=== PATIENT | male | born 1975 | race Caucasian/White ===

== ENCOUNTER 2017-05-29 03:20 | Emergency (ER) | payer SELFPAY ==
[2017-05-29 03:54] VITALS: BP 140/90; PULSE 80; TEMP 97.9; BMI 28.1
[2017-05-29] MEDS ORDERED: FLUORESCEIN NA 1 EA STRIP ONE (04:02)
[2017-05-29] MEDS ORDERED: POLYMYXIN B SULFATE/TMP 10 ML OPHTHALMIC SOLUTION OD ONE (04:14)
--- NOTE | 2017-05-29 04:14 | PDOC ---
History of Present Illness - General Chief Complaint: Eye Problem Stated Complaint: EYE PROBLEM Time Seen by Provider: 05/29/17 03:55 History Source: Patient Exam Limitations: No Limitations - History of Present Illness Initial Comments: 05/29/17 04:09 42yo Male patient with no significant past medical history presents to ED c/o bilateral eye pain with left upper eyelid swelling. Patient denies vision changes, contact lens use. 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 He denies any other complaints at this time. Past History - Travel Traveled outside of the country in the last 30 days: No Close contact w/someone who was outside of country & ill: No - Past Medical History Allergies/Adverse Reactions: Allergies Allergy/AdvReac Type Severity Reaction Status Date / Time No Known Allergies Allergy Verified 05/29/17 03:53 Home Medications: Ambulatory Orders NK [No Known Home Medication] 05/29/17 - Immunization History Immunization Up to Date: Yes - Psycho/Social/Smoking Cessation Hx Suicidal Ideation: No Smoking History: Never smoked Review of Systems - Review of Systems Able to Perform ROS?: Yes Is the patient limited Hungarian proficient: No Constitutional: No: Chills, Fever HEENTM: Yes: Eye Pain, Tearing. No: Blurred Vision, Recent change in vision, Double Vision, Cataracts, Ear Pain All Other Systems: Reviewed and Negative *Physical Exam - Vital Signs Last Vital Signs Temp Pulse Resp BP Pulse Ox 97.9 F 80 18 140/90 97 05/29/17 03:20 05/29/17 03:20 05/29/17 03:20 05/29/17 03:20 05/29/17 03:20 - Physical Exam General Appearance: Yes: Nourished, Appropriately Dressed. No: Apparent Distress, Mild Distress, Moderate Distress, Severe Distress HEENT: positive: EOMI, GOKUL, Normal ENT Inspection, Normal Voice, Symmetrical, TMs Normal, Pharynx Normal. negative: Tonsillar Exudate, Tonsillar Erythema, Nasal Congestion, Rhinorrhea, Sinus Tenderness, TM Bulging, TM Dull, TM Erythema Neck: positive: Trachea midline, Normal Thyroid, Supple. negative: Stridor, Lymphadenopathy (R), Lymphadenopathy (L), Tender lateral, Tender midline Respiratory/Chest: positive: Lungs Clear, Normal Breath Sounds. negative: Chest Tender, Respiratory Distress, Accessory Muscle Use, Labored Respiration, Rapid RR, Crackles, Rales, Rhonchi, Stridor, Wheezing Cardiovascular: positive: Regular Rhythm, Regular Rate Integumentary: positive: Normal Color, Dry, Warm. negative: Erythema, Swelling , Bruising Neurologic: positive: prepress specialist II-XII NML intact, Fully Oriented, Alert, Normal Mood/ Affect, Normal Response, Motor Strength 5/5 Procedures - Eye Procedure Alcaine Drops Administered: Yes Eye Irrigated w/ Saline(Bipin Lens): No Antibiotic Oinment/Drps Admin: both eyes Progress: 05/29/17 04:26 Eye exam (Medina lamp) revealed corneal abrasion to right eye w/ bilateral conjunctivitis. *DC/Admit/Observation/Transfer Diagnosis at time of Disposition: Eye pain Qualifiers: Laterality: bilateral Qualified Code(s): H57.13 - Ocular pain, bilateral Corneal abrasion, right Qualifiers: Encounter type: initial encounter Qualified Code(s): S05.01XA - Injury of conjunctiva and corneal abrasion without foreign body, right eye, initial encounter - Discharge Dispostion Disposition: HOME Condition at time of disposition: Stable Admit: No - Referrals Referrals: Swapnil Hill MD [Staff Physician] - - Patient Instructions Printed Discharge Instructions: DI for Corneal Abrasion Additional Instructions: Seguimiento con el Dr. Hill (Oftalmologa) el lunes sin falta o ir a Oncology Physician reinaldo se momin discutido. Tales reinaldo la visin de la josette, [facility], o [facility]. Estos son ejemplos. Si no puede ingresar en ninguno de estos establecimientos, regrese a rochelle departamento de emergencias para pio evaluacin posterior. Administrar gotas para los ojos reinaldo: 1 gota a ambos ojos cada 3 horas mientras est despierto x 7 johnson. Debe continuar con estas gotas hasta que laura evaluadas por oftalmologa u optometrista. Motrin o Tylenol para el dolor segn sea necesario. Por favor use gafas protectoras mientras trabaja para prevenir esto en el futuro. Follow up with Dr. Hill (Ophthalmology) on Tuesday without fail or go to Oncology Physician as discussed. Such as [facility], [facility], or [facility]. These are examples. If you are unable to get into any of these establishments, return to this emergency department for further evaluation. Administer eye drops as: 1 drop to both eyes every 3 hours while awake x 7 days. You should continue these drops until your are evaluated by Ophthalmology or Oncology Physician. Motrin or Tylenol for pain as needed. Please wear protective eyewear while working to prevent this in the future. Print Language: ENGLISH
== END 2017-05-29 04:34 | disposition home or self-care (01) ==
LOC: JER 03:20
PROC: 4A07X0Z Measurement of Visual Acuity, External Approach (ICD-10-PCS; principal; 2017-05-29)
DX: S05.01XA Injury of conjunctiva and corneal abrasion without foreign body, right eye, initial encounter (principal); H10.33 Unspecified acute conjunctivitis, bilateral; W89.8XXA Exposure to other man-made visible and ultraviolet light, initial encounter; Y93.89 Activity, other specified; Y92.69 Other specified industrial and construction area as the place of occurrence of the external cause; Y99.0 Civilian activity done for income or pay
CPT/HCPCS: 99282-25